=== PATIENT | female | born 1990 | race Caucasian/White ===

== ENCOUNTER 2019-06-02 13:13 | Emergency (ER) | payer OTHER ==
[~2019-06-02] VITALS: Ht 152.4 cm; Wt 96.2 kg
[2019-06-02 13:34] VITALS: Ht 152.4 cm; Wt 96.2 kg
[2019-06-02 15:15] VITALS: BP 118/55
== END 2019-06-02 15:15 | disposition home or self-care (01) ==
LOC: ED 13:13
DX: L05.01 Pilonidal cyst with abscess (principal); Z48.01 Encounter for change or removal of surgical wound dressing

== ENCOUNTER 2019-06-05 10:00 | Emergency (ER) | payer OTHER ==
[~2019-06-05] VITALS: Ht 152.4 cm; Wt 93.0 kg
[2019-06-05 10:02] VITALS: Ht 152.4 cm; Wt 93.0 kg
[2019-06-05 10:48] VITALS: BP 117/46
== END 2019-06-05 10:48 | disposition home or self-care (01) ==
LOC: ED 10:00
DX: L05.01 Pilonidal cyst with abscess (principal); Z98.890 Other specified postprocedural states